=== PATIENT | male | born 1985 | race Caucasian/White ===

== ENCOUNTER 2018-01-29 20:35 | Emergency (ER) | payer OTHER, SELFPAY ==
[2018-01-29 20:37] VITALS: BP 132/74; PULSE 97; RESP 20; TEMP 36.8; O2SAT 100; BMI 39.1
--- NOTE | 2018-01-29 21:16 | ED.DCSUM_ITS ---
- ER Visit Summary Date of Service: 01/29/18 Chief Complaint: Back pain History of Present Illness: The patient is a 32 M presenting with back pain. Patient states he bent over to pick something up while doing yard work and had sudden low back pain. Pain does not radiate. He has no bowel or bladder incontinence. No numbness or weakness. He did not take any medication prior to arrival. History of previous back surgery. Denies fever or other complaints. Physical Examination: Vitals are stable. Patient is afebrile. Alert no acute distress. HEENT exam is unremarkable. Neck is supple. Lungs are clear and equal bilaterally. Heart is regular rate and rhythm. Abdomen is soft nontender nondistended. Back: right paraspinal lumbar tenderness, straight leg raise negative bilaterally Extremities are unremarkable. Skin is warm and dry. No focal neurologic deficit. Normal strength and sensation Remainder of exam is unremarkable. Emergency Department Course and Treatment: Patient is given Dilaudid IM with some improvement. He initially refused zofran. He continues to have pain. He is given Valium and Toradol. He continues to have pain. IV was placed and he was given an additional dose of dilaudid. Patient states his pain is improved and he is now able to stand at bedside. He declines admission. He began to feel nauseated and vomited. He was then given Zofran IV and IV fluids. He will be observed in the ED and checked out to oncoming physician. Disposition: Impression: Lumbar strain This note was generated with [employer] dictation software. It may contain incorrect words, spelling, and punctuation that were not noted in review of the chart prior to signing ED Disposition - Plan for ED Patient: Chief Complaint: Back Instructions: ED Sprain Strain Lumbar Referrals: Bright Gates [Primary Care Provider] -
[2018-01-29] MEDS: HYDROmorphone 1 MG/ML Syringe 2 MG IM (21:23)
[2018-01-29] MEDS: Ketorolac 60 MG/2 ML Vial IM (23:04)
[2018-01-29] MEDS: diazePAM 5 MG Tablet PO (23:04)
[2018-01-30 00:01] VITALS: BP 110/64; PULSE 84; RESP 18; O2SAT 96
[2018-01-30] MEDS: HYDROmorphone 1 MG/ML Syringe IV (00:05)
[2018-01-30 00:21] LABS: Absolute Lymphocyte Count 1.75 X10^3/ul (0.83-4.51); Absolute Neutrophil Count 6.4 X10^3/uL (2.0-7.7); Basophil# 0.02 X10^3/uL; Basophil% 0.2 % (0-1); Eosinophil# 0.08 X10^3/uL; Eosinophils% 0.9 % (0-5); Hematocrit 40.9 % (40-54); Hemoglobin 13.8 g/dl (13.0-16.5); Lymphocyte # 1.75 X10^3/ul (4.0); Lymphocyte % 19.9 % (19-41); Mean Corp Hgb Conc 33.7 g/gl (32-36); Mean Corpuscular Hgb 28.4 pg (27.0-32.0); Mean Corpuscular Volume 84.2 fL (80-94); Mean Platelet Vol. 9.2 fl (6.2-12.0); Monocyte# 0.53 X10^3/uL; Neutrophil # 6.39 X10^3/uL (2.7-7.7); Neutrophil % 72.9 % (47-70); Platelet Count 264 K/mm3 (150-450); RBC Distribution Width CV 13.5 % (11.6-14.6); RBC Distribution Width SD 40.8 fl (35.1-43.9); Red Blood Count 4.86 M/mm3 (4.6-6.2); White Blood Count 8.8 K/mm3 (4.4-11.0)
[2018-01-30 00:22] LABS: POSITIVE COUNT NO; POSITIVE DIFFERENTIAL NO; POSITIVE MORPHOLOGY NO
[2018-01-30 00:42] LABS: Anion Gap 8 (5-15); BUN 16 mg/dL (7-18); BUN/Creat Ratio 15.1 RATIO (10-20); Calcium,Total 8.5 mg/dL (8.5-10.1); Chloride 109 mmol/L (98-107); Creatinine, Serum 1.06 mg/dL (0.70-1.30); EST Glomerular Filtration Rate 87 mL/min (>60); Est Glom Filt Rate - Afr Amer 105 mL/min (>60); Estimated Creatinine Clearance 111.84 ml/min; Glucose 129 mg/dL (74-106); Potassium 4.2 mmol/L (3.5-5.1); Sodium Level 143 mmol/L (136-145)
[2018-01-30] MEDS: Ondansetron 4 MG/2 ML Vial IV (01:06)
--- NOTE | 2018-01-30 01:16 | ED.DEP ---
ED Disposition - Plan for ED Patient: Chief Complaint: Back Instructions: ED Sprain Strain Lumbar Referrals: Bright Gates [Primary Care Provider] -
--- NOTE | 2018-01-30 01:33 | ED.DEP ---
ED Disposition - Plan for ED Patient: Chief Complaint: Back Instructions: ED Sprain Strain Lumbar Prescriptions: Oxycodone HCl/Acetaminophen [Percocet 5/325] 1 - 2 tablet PO Q6H PRN PRN 2 Days #12 tablet PRN Reason: Pain Referrals: Bright Gates [Primary Care Provider] -
[2018-01-30 03:21] VITALS: BP 118/71; PULSE 80; RESP 14; O2SAT 97
[2018-01-30] MEDS: oxyCODONE 5 MG Tablet PO (03:25)
== END 2018-01-30 03:33 | disposition home or self-care (01) ==
PROVIDERS: Emergency Provider Emergency Medicine; Family Provider Family Medicine; PCP Family Medicine
DX: S39.012A Strain of muscle, fascia and tendon of lower back, initial encounter (principal); X50.1XXA Overexertion from prolonged static or awkward postures, initial encounter; Y93.9 Activity, unspecified; Y92.9 Unspecified place or not applicable
CPT/HCPCS: 80048; 85025; 96372; 96374; 96375; 99284; J7030; A4216; J2405

== ENCOUNTER 2019-10-26 18:30 | Emergency (ER) | payer BC, SELFPAY ==
[2019-10-26 18:31] VITALS: BP 135/89; PULSE 91; RESP 20; TEMP 35.9; O2SAT 100; BMI 39.5
[2019-10-26 18:57] LABS: Absolute Lymphocyte Count 1.51 X10^3/uL (0.83-4.51); Absolute Neutrophil Count 3.2 X10^3/uL (2.0-7.7); Basophil# 0.03 X10^3/uL; Basophil% 0.6 % (0-1); Eosinophils% 1.9 % (0-5); Hematocrit 47.3 % (40-54); Hemoglobin 15.3 g/dL (13.0-16.5); Lymphocyte # 1.51 X10^3/ul (4.0); Lymphocyte % 28.1 % (19-41); Mean Corp Hgb Conc 32.3 g/dL (32-36); Mean Corpuscular Hgb 26.6 pg (27.0-32.0); Mean Corpuscular Volume 82.1 fL (80-94); Monocyte# 0.52 X10^3/uL; Monocyte% 9.7 % (0-10); NRBC Flagged by Analyzer 0 % (0-5); Neutrophil # 3.21 X10^3/uL (2.7-7.7); Neutrophil % 59.5 % (47-70); Platelet Count 242 K/mm3 (150-450); RBC Distribution Width CV 13.2 % (11.6-14.6); RBC Distribution Width SD 39.2 fl (35.1-43.9); Red Blood Count 5.76 M/mm3 (4.6-6.2); White Blood Count 5.4 K/mm3 (4.4-11.0)
[2019-10-26 19:09] LABS: Anion Gap 6 (5-15); BUN 16 mg/dL (7-18); BUN/Creat Ratio 13.8 RATIO (10-20); Calcium,Total 9.2 mg/dL (8.5-10.1); Chloride 108 mmol/L (98-107); Creatinine, Serum 1.16 mg/dL (0.70-1.30); EST Glomerular Filtration Rate 77 mL/min (>60); Est Glom Filt Rate - Afr Amer 94 mL/min (>60); Estimated Creatinine Clearance 103.32 ml/min; Glucose 95 mg/dL (74-106); Potassium 3.6 mmol/L (3.5-5.1); Sodium Level 138 mmol/L (136-145)
[2019-10-26] MEDS: 0.9% Normal Saline 1,000 ML 1000 ML IV (19:31)
[2019-10-26] MEDS: Loperamide 2 MG Capsule 4 MG PO (19:31)
[2019-10-26] MEDS: Ondansetron 4 MG/2 ML Vial IV (19:31)
--- NOTE | 2019-10-26 19:36 | ED.VIS.GEN ---
History of Present Illness Chief Complaint: Abd Pain Informant: Patient Onset: Month(s) Context: Sudden Onset - Of severe pain with diarrhea today Timing: Intermittent, Waxes and wanes Quality: Burning epigastric pain Location: Epigastric Current Severity: Mild Maximum Severity: Severe Worsened by: When patient had diarrhea Relieved by: Resolved during H&P Associated Symptoms: Thirst, dry mouth and lightheadedness Narrative: Patient is a 34-year-old male with history of IBS on IBS meds who presents with profuse diarrhea for 1.5 hours prior to presentation. He did not note any blood or mucus in the stool. There is no family history of Crohn's or ulcerative colitis. He denies vomiting. He denies fever or chills. Denies weight loss or weight gain. was concerned because he was lightheaded prior to presenting to the emergency department. He denies any HEENT, respiratory or cardiac symptoms. He has no symptoms. Prior similar symptoms: No - Intermittent constipation diarrhea yes pain no Recent Illness/Hospitalization: No - Past Medical History (1) History of IBS Status: Acute Past Medical History - Allergies and Home Meds Allergies/Adverse Reactions: Allergies morphine Allergy (Verified 10/26/19 18:31) Other azithromycin [From Zithromax] Adverse Reaction (Verified 10/26/19 18:31) Hives Primary Care Physician: Bright Gates [Primary Care Provider] - Prior records reviewed: No Surgical History: no surgical history Lives: Spouse/ Significant Other Smoking Status: Never smoker Alcohol: None Drugs: None Review of Systems General: Denies: Chills, Fever, Malaise, Sweats ENT: Denies: Rhinorrhea, Sore throat Cardiovascular: Denies: Chest pain, Palpitations Respiratory: Denies: Dyspnea, Cough, Dyspnea on exertion Gastrointestinal: Reports: Abdominal pain, Nausea, Diarrhea. Denies: Vomiting, Constipation, Melena, Hematochezia Musculoskeletal: Denies: Myalgias, Arthralgias, Neck pain, Back pain, Swelling, Extremity Pain, -, - Skin: Denies: Rash, Wounds Neurological: Denies: Headache, Weakness, Numbness Hematologic: Denies: Easy bruising, Easy bleeding Physical Exam Vital Signs/Narrative: Vital Signs Temp Pulse Resp BP Pulse Ox 10/26/19 18:31 96.6 F L 91 20 H 135/89 H 100 Inital Vital Signs reviewed: Yes General: Well nourished, Well developed, No Acute Distress Head: Normocephalic, Atraumatic Eyes: Perrl, EOMI ENT: No rhinorrhea, Dry mucous membranes Neck: Supple, Nontender, No lymphadenopathy, No JVD Cardiovascular: Regular rate, Regular rhythm, No murmurs, Normal S1, Normal S2 Respiratory: No distress, CTA bilaterally, Chest nontender Abdomen: Soft, Nontender, Nondistended, Normal bowel sounds, No masses Rectal: Deferred Back: Nontender, Normal Inspection Extremities: Nontender, No edema Skin: Normal color, No rash Neurological: Alert, Oriented x3, Cranial nerves II-XII grossly intact, Normal Strength, Normal Sensation Psychological: Normal affect, Normal Mood Diagnostic/Tx/Re-eval Laboratory Results 10/26/19 10/26/19 10/26/19 18:50 18:50 23:14 WBC 5.4 RBC 5.76 Hgb 15.3 Hct 47.3 MCV 82.1 MCH 26.6 L MCHC 32.3 RDW Std Deviation 39.2 RDW Coeff of Verna 13.2 Plt Count 242 MPV 9.0 Immature Gran % (Auto) 0.200 Neut % (Auto) 59.5 Lymph % (Auto) 28.1 Fisher % (Auto) 9.7 Eos % (Auto) 1.9 Baso % (Auto) 0.6 Absolute Neuts (auto) 3.2 Absolute Lymphs (auto) 1.51 Nucleated RBC % 0 Sodium 138 Potassium 3.6 Chloride 108 H Carbon Dioxide 24.0 Anion Gap 6 BUN 16 Creatinine 1.16 Estim Creat Clear Calc 103.32 Est GFR (MDRD) Af Amer 94 Est GFR (MDRD) Non-Af 77 BUN/Creatinine Ratio 13.8 Glucose 95 Calcium 9.2 Urine Color Yellow Urine Clarity Clear Urine pH 5.0 Ur Specific [place] 1.025 Urine Protein 15 H Urine Glucose (UA) Normal Urine Ketones 50 H Urine Occult Blood Negative Urine Nitrite Negative Urine Bilirubin Negative Urine Urobilinogen 1 H Ur Leukocyte Esterase Negative Urine RBC 0 SEEN Urine WBC 0 SEEN Ur Squamous Epith Cells 0 SEEN Urine Bacteria 0 SEEN Urine Mucus 1+ Laboratory studies are consistent with dehydration with ketosis. Patient has urinated. Patient has passed p.o. challenge. Patient feels and looks much better when he was reexamined at [facility]. - Medical Decision Making Basic metabolic panel was obtained to assess CO2/anion gap electrolytes and renal function. He received 1 L of normal saline. He was treated with Zofran and Imodium. He did take Bentyl prior to presentation. Differential diagnosis exacerbation of her bowel syndrome, viral gastroenteritis, atypical presentation for Crohn's disease/inflammatory bowel disorder ED Disposition - Plan for ED Patient: Disposition: Home or Assisted Living Diagnosis: Diarrhea, Moderate dehydration, Ketosis, Abdominal pain, bilateral lower quadrant Instructions: DIET, Vomiting or Diarrhea [6yr-Adult] Referrals: Bright Gates [Primary Care Provider] - 3-5 Days if not improving
--- NOTE | 2019-10-26 20:18 | ED.RN ---
pt unable to urinate but had more diarrhea. requesting pain med. will notify
[2019-10-26] MEDS: Ketorolac 15 MG/ML Vial IV (20:25)
[2019-10-26] MEDS: 0.9% Normal Saline 1,000 ML 999 ML IV (21:55)
[2019-10-26 22:18] VITALS: BP 105/60; PULSE 72; RESP 14; O2SAT 97
[2019-10-26 23:21] LABS: Bacteria 0 SEEN /hpf (None Seen); Red Blood Cells-Urine 0 SEEN /hpf (0-5); Squamous Epithelial Cells - UA 0 SEEN /hpf (0-5); White Blood Cells 0 SEEN /hpf (0-5)
[2019-10-26 23:33] LABS: Color, Urine Yellow (Yellow); Glucose, Dipstick Normal (Normal); Ketone-Dipstick 50 mg/dl (Negative); Leukocyte Esterase-Dipstick Negative /ul (Negative); Nitrite-Dipstick Negative (Negative); Occult Blood-Urine Negative /ul (Negative); Protein-Dipstick 15 mg/dl (Negative); Specific Gravity, Urine 1.025 (1.002-1.030); Urine Bilirubin Dipstick Negative (Negative); Urine Clarity Clear (Clear); Urine Urobilinogen 1 mg/dl (Normal)
[2019-10-26 23:38] LABS: Mucous, Urine 1+ /hpf (<or=2+)
== END 2019-10-27 00:11 | disposition home or self-care (01) ==
PROVIDERS: Emergency Provider Emergency Medicine; Family Provider Family Medicine; PCP Family Medicine
DX: R19.7 Diarrhea, unspecified (principal); E86.0 Dehydration; E88.89 Other specified metabolic disorders; R10.31 Right lower quadrant pain; R10.32 Left lower quadrant pain; K58.9 Irritable bowel syndrome, unspecified; Z79.899 Other long term (current) drug therapy
CPT/HCPCS: 80048; 81001; 85025; 96361; 96374; 96375; 99283; J7030; J2405

== ENCOUNTER 2022-02-05 10:48 | Outpatient (CLI) | payer BC, SELFPAY ==
[2022-02-05 12:19] LABS: Absolute Lymphocyte Count 2.26 X10^3/uL (0.83-4.51); Absolute Neutrophil Count 2.9 X10^3/uL (2.0-7.7); Basophil# 0.07 X10^3/uL; Basophil% 1.2 % (0-1); Eosinophil# 0.16 X10^3/uL; Eosinophils% 2.7 % (0-5); Hematocrit 45.5 % (40-54); Hemoglobin 15.2 g/dL (13.0-16.5); Lymphocyte # 2.26 X10^3/ul (0.83-4.51); Lymphocyte % 38.8 % (19-41); Mean Corp Hgb Conc 33.4 g/dL (32-36); Mean Corpuscular Hgb 28.7 pg (27.0-32.0); Mean Platelet Vol. 9.2 fl (6.2-12.0); Monocyte# 0.43 X10^3/uL; Monocyte% 7.4 % (0-10); NRBC Flagged by Analyzer 0.3 % (0-5); Neutrophil # 2.88 X10^3/uL (2.7-7.7); Neutrophil % 49.6 % (47-70); Platelet Count 289 K/mm3 (150-450); RBC Distribution Width CV 13.2 % (11.6-14.6); RBC Distribution Width SD 40.6 fl (35.1-43.9); Red Blood Count 5.29 M/mm3 (4.6-6.2); White Blood Count 5.8 K/mm3 (4.4-11.0)
[2022-02-05 12:20] LABS: Vitamin D,25 Hydroxy 23.3 ng/mL
[2022-02-05 12:26] LABS: AST(SGOT) 19 U/L (15-37); Alanine Aminotransfer ALT/SGPT 48 U/L (16-61); Albumin, Serum 3.8 g/dL (3.2-5.0); Alkaline Phosphatase 83 U/L (45-117); Anion Gap 5 (5-15); BUN 11 mg/dL (7-18); BUN/Creat Ratio 10.7 RATIO (10-20); Calcium,Total 9.6 mg/dL (8.5-10.1); Chloride 106 mmol/L (98-107); Cholesterol 177 mg/dL (200); Creatinine, Serum 1.03 mg/dL (0.70-1.30); EST Glomerular Filtration Rate 88 mL/min (>60); Est Glom Filt Rate - Afr Amer 106 mL/min (>60); Free T3 3.3 pg/mL (2.18-3.98); Globulin 3.8 g/dL (2.2-4.2); Glucose 94 mg/dL (74-106); High Density Lipoprotein 42 mg/dL; Potassium 4.4 mmol/L (3.5-5.1); Protein, Total 7.6 g/dL (6.4-8.2); Sodium Level 138 mmol/L (136-145); T4 Free Direct 0.98 ng/dL (0.76-1.46); Thyroid Stim Hormone (TSH) 0.88 uIU/mL (0.358-3.74); Triglycerides 92 mg/dL; Very Low Density Lipoprotein 18 mg/dL (5-40)
== END 2022-02-05 23:59 | disposition home or self-care (01) ==
LOC: BIMLAB 10:49
PROVIDERS: PCP Internal Medicine; Referring Provider Internal Medicine; Visit Provider Internal Medicine
DX: E55.9 Vitamin D deficiency, unspecified (principal); Z87.19 Personal history of other diseases of the digestive system; Z13.220 Encounter for screening for lipoid disorders; Z13.1 Encounter for screening for diabetes mellitus
CPT/HCPCS: 36415; 80053; 80061; 82306; 83036; 84439; 84443; 84481; 85025

== ENCOUNTER 2023-02-12 11:03 | Observation (INO) | payer BC, SELFPAY ==
[2023-02-12 11:04] VITALS: BP 130/77; PULSE 82; RESP 18; TEMP 36.2; O2SAT 97; BMI 40.1
--- NOTE | 2023-02-12 11:27 | EX.ED.DYSGE1 ---
HPI History of Present Illness Chief Complaint: Cellulitis Informant: patient Onset/Context/Timing Onset: Days (5) Context: Gradual Onset Timing: Continuous Quality: Dull Location: Anterior right lower leg Worsened by: Weightbearing and ambulation Relieved by: Nothing Narrative Narrative: Patient presents with redness and swelling to the anterior aspect of his right lower leg that has been constant for the last 5 days. Patient states he was recently diagnosed with cellulitis and was started on Bactrim and Keflex. Patient states he has been unable to tolerate the Bactrim and stopped taking it a couple days ago. Patient has been continuing on the Keflex. Patient admits to subjective fevers and chills. Patient states the redness is getting worse. Patient denies any paresthesias or weakness. Patient is unsure of any trauma. Patient thinks he may have been bitten by an insect. [facility] Medical History Seasonal allergies Sleep apnea Home Medications loratadine 10 mg tablet (Claritin) 10 mg PO DAILY PRN 02/12/23 [History Last Taken Unknown] Allergy/AdvReac Type Severity Reaction Status Date / Time morphine Allergy Other Verified 02/12/23 11:04 azithromycin [From Zithromax] AdvReac Hives Verified 02/12/23 11:04 Sulfa (Sulfonamide AdvReac Nausea Verified 02/12/23 11:04 Antibiotics) [sulfa drugs] Family History (Updated 02/05/22 @ 09:26 by Juana Álvarez) Father Blood clot in vein Brother Diabetes Grandfather Heart disease Skin cancer Surgical History History of back surgery Social History Smoking Status: Never smoker alcohol intake: never substance use type: does not use what type of physical activity do you participate in: walking frequency: daily ROS ROS ED Constitutional Constitutional ED: Reports chills, fever(s) and subjective Eyes Eyes: Denies blurry vision or change in vision ENT ENT ED: Denies rhinorrhea or sore throat Cardiovascular Cardiovascular: Denies chest pain or palpitations Respiratory/Chest Respiratory/Chest: Denies cough or dyspnea Gastrointestinal Gastrointestinal: Denies nausea or vomiting Genitourinary Genitourinary ED: Denies dysuria or hematuria Musculoskeletal Musculoskeletal: Denies back pain or neck pain Integumentary Denies abscess or rash Neurologic Neurologic: Denies headache(s) or weakness Allergic/Immunologic Allergic/Immunologic ED: Denies mouth swelling or urticaria EXAM Physical Exam Const Vital Signs: 02/12/23 11:04 Temperature 97.1 F L Temperature Source Temporal Pulse Rate 82 Respiratory Rate 18 Blood Pressure 130/77 H Blood Pressure Mean 94 Pulse Ox 97 Oxygen Delivery Method Room Air Positive well nourished, well developed and obese General Appearance ED: well developed and NAD Nutritional Appearance: obese HEENT Reports moist mucous membranes Neck supple and no JVD Resp normal respiratory effort and clear to auscultation bilaterally Cardio regular rate and regular rhythm GI normal to inspection, nondistended, normoactive bowel sounds and non-tender Palpation: soft Extremity Extremity Narrative: There is mild tenderness, erythema, and warmth over the anterior aspect of the right lower leg. There is no fluctuance or evidence of any abscess. There is some mild induration. Pedal pulses are equal bilaterally. Sensation was intact to light touch in all digits. Capillary refill was less than 2 seconds in all digits. There is full range of motion of the right lower leg. General Extremety ED: Yes edema and tenderness General Extremity: edema Neuro oriented x3, CN's II-XII intact bilaterally and no sensory deficits noted Motor Exam: strength 5/5 throughout Psych mental status grossly normal MDM MDM MDM Narrative Medical decision making narrative: Differential diagnosis includes cellulitis, sepsis, developing abscess, and partially treated infection. CBC will be obtained to assess for leukocytosis and anemia. Basic metabolic profile will be obtained to assess for electrolyte abnormality and renal function. Lactate will be obtained to assess for sepsis. Blood cultures will be obtained to assess for sepsis. Patient had a recent ultrasound of his right lower leg. I do not feel there is any reason for any imaging at this time. Lab Data Attestation: I reviewed the patient's lab results. Lab results narrative: CBC was reviewed and was within normal limits. Basic metabolic profile was reviewed and was within normal limits. Lactate was reviewed and was normal. Labs: Laboratory Results - last 24 hr 02/12/23 02/12/23 02/12/23 12:00 12:00 12:00 WBC 6.0 RBC 4.45 L Hgb 13.0 Hct 37.6 L MCV 84.5 MCH 29.2 MCHC 34.6 RDW Std Deviation 41.9 RDW Coeff of Verna 13.5 Plt Count 283 MPV 8.8 Immature Gran % (Auto) 0.700 Neut % (Auto) 55.7 Lymph % (Auto) 28.2 [place] % (Auto) 9.2 Eos % (Auto) 4.7 Baso % (Auto) 1.5 H Absolute Neuts (auto) 3.3 Absolute Lymphs (auto) 1.69 Nucleated RBC % 0 Sodium 136 Potassium 3.7 Chloride 107 Carbon Dioxide 26.0 Anion Gap 3 L BUN 11 Creatinine 1.10 Estim Creat Clear Calc 105.93 Est GFR (MDRD) Af Amer 98 Est GFR (MDRD) Non-Af 81 BUN/Creatinine Ratio 10.0 Glucose 106 Lactic Acid 1.5 Calcium 9.0 Management Discussion w/another healthcare provider: Hospitalist Treatment and Re-Evaluation :: Patient was given a dose of Unasyn here. Patient is feeling better on reevaluation. Case was discussed with hospitalist. She will admit the patient for observation. She also requested adding vancomycin. This was ordered. Patient understands and is agreeable with the plan. All questions were answered. Discharge Plan Triage Chief Complaint: Cellulitis ED Provider: Gustavo Mcnulty Dx/Rx/DC Orders Clinical Impression: Cellulitis of right leg, Failure of outpatient treatment Prescriptions: No Action loratadine [Claritin] 10 mg tablet 10 mg PO DAILY PRN Primary Care Provider: Mariann Tovar Referrals: Mariann Tovar MD [Primary Care Provider] - Disposition Disposition: Acute Care Hospital [facility]
[2023-02-12 12:08] LABS: Absolute Lymphocyte Count 1.69 X10^3/uL (0.83-4.51); Absolute Neutrophil Count 3.3 X10^3/uL (2.0-7.7); Basophil# 0.09 X10^3/uL; Basophil% 1.5 % (0-1); Eosinophil# 0.28 X10^3/uL; Eosinophils% 4.7 % (0-5); Hematocrit 37.6 % (40-54); Lymphocyte # 1.69 X10^3/ul (0.83-4.51); Lymphocyte % 28.2 % (19-41); Mean Corp Hgb Conc 34.6 g/dL (32-36); Mean Corpuscular Hgb 29.2 pg (27.0-32.0); Mean Corpuscular Volume 84.5 fL (80-94); Mean Platelet Vol. 8.8 fl (6.2-12.0); Monocyte# 0.55 X10^3/uL; Monocyte% 9.2 % (0-10); NRBC Flagged by Analyzer 0 % (0-5); Neutrophil # 3.34 X10^3/uL (2.7-7.7); Neutrophil % 55.7 % (47-70); Platelet Count 283 K/mm3 (150-450); RBC Distribution Width CV 13.5 % (11.6-14.6); RBC Distribution Width SD 41.9 fl (35.1-43.9); Red Blood Count 4.45 M/mm3 (4.6-6.2)
[2023-02-12 12:20] LABS: Anion Gap 3 (5-15); BUN 11 mg/dL (7-18); Chloride 107 mmol/L (98-107); EST Glomerular Filtration Rate 81 mL/min (>60); Est Glom Filt Rate - Afr Amer 98 mL/min (>60); Estimated Creatinine Clearance 105.93 ml/min; Glucose 106 mg/dL (74-106); Potassium 3.7 mmol/L (3.5-5.1); Sodium Level 136 mmol/L (136-145)
[2023-02-12 12:27] LABS: Lactic Acid 1.5 mmol/L (0.4-1.9)
--- NOTE | 2023-02-12 13:40 | PCM.HP.STD ---
HPI - General General Date of Admission: 02/12/23 Date of Service: 02/12/23 Chief Complaint: R LE Cellulitis HPI Narrative KEENAN ARELLANO, is a 37 M who presented to the emergency department at [facility] on 02/12/2023 with a chief complaint of right lower extremity erythema and swelling. He was seen in an outside ER last Emmanuel concerning right lower extremity swelling and a small wound on his anterior right lomax. 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 He had an area in the center of the erythema with a small wound. His emergency department visit at that time included a lower extremity ultrasound and imaging. Ultrasound was negative for DVT. Imaging showed an area of edema but no other abnormalities. He was started on Keflex and Bactrim. He is only to tolerate a few doses of the Bactrim because it caused stomach upset and possibly a rash on his hand so he stopped taking that and has only been maintained on the Keflex. He reported that the swelling had been worsening and the area of erythema and discomfort had enlarged. He has had no fever but does report some chills and general malaise. Denies any other associated symptoms. Vital signs on presentation showed a temperature of 97.1, blood pressure 130/77, heart rate 82, respiratory 18, and oxygen saturation was 97% on room air. CBC was unremarkable with no leukocytosis or left shift. Chemistry panel was unremarkable. Lactic acid was 1.5. In the emergency department he was placed on Unasyn and I requested a dose of vancomycin be given. He will be admitted as observation to the medical floor. [facility] Medical History (Updated 02/12/23 @ 14:[address] Citlali Epstein DO) Morbid obesity Seasonal allergies Sleep apnea Home Medications loratadine 10 mg tablet (Claritin) 10 mg PO DAILY PRN 02/12/23 [History Last Taken Unknown] Allergy/AdvReac Type Severity Reaction Status Date / Time morphine Allergy Other Verified 02/12/23 11:04 azithromycin [From Zithromax] AdvReac Hives Verified 02/12/23 11:04 Sulfa (Sulfonamide AdvReac Nausea Verified 02/12/23 11:04 Antibiotics) [sulfa drugs] Family History Father Blood clot in vein Brother Diabetes Grandfather Heart disease Skin cancer Surgical History History of back surgery Social History Smoking Status: Never smoker alcohol intake: never substance use type: does not use what type of physical activity do you participate in: walking frequency: daily ROS Constitutional Constitutional: Reports chills and malaise; Denies anorexia, change in weight, fatigue, fever(s), night sweats, weakness or other Eyes Eyes: Denies blurry vision, change in eye color, change in vision, discharge from eye(s), double vision, erythema, eye pain, loss of vision or other ENT HEENT: Denies abnormal hearing, dysphagia, ear pain, epistaxis, headache(s), hearing loss, nasal congestion, nasal discharge, post nasal drip, sinus pressure, sore throat or other Cardiovascular Cardiovascular: Denies chest pain, claudication, dyspnea on exertion, edema, lightheadedness, orthopnea, palpitations, paroxysmal nocturnal dyspnea, rapid heart rate, syncope or other Respiratory/Chest Respiratory/Chest: Denies cough, dyspnea, excessive phlegm production, hemoptysis, productive cough, shortness of breath at rest, shortness of breath with exertion, wheezing or other Gastrointestinal Gastrointestinal: Denies abdominal pain, coffee ground emesis, constipation, diarrhea, dyspepsia, hematemesis, hematochezia, loose stools, melena, nausea, vomiting or other Genitourinary Genitourinary: Denies burning urination, difficulty urinating, dysuria, hematuria, nocturia, urinary frequency, urinary hesitancy, urinary incontinence, urinary urgency or other Musculoskeletal Musculoskeletal: Reports other Details: Right lower extremity pain Integumentary Integumentary: Reports lesions and rash; Denies dry skin, jaundice, new lesions, pruritus, wounds or other Neurologic Neurologic: Denies abnormal gait, abnormal speech, confusion, disequilibrium, dizziness, focal weakness, headache(s), numbness, paresthesias, seizure-like activity, seizures, syncope, tingling, tremor(s) or other Psychiatric Psychiatric: Denies anxiety, depression, homicidal ideation, suicidal ideation or other Endocrine Endocrinology: Denies change in body appearance, cold intolerance, excessive sweating, heat intolerance, polydipsia, polyuria or other Hematologic/Lymphatic Hematologic/Lymphatic: Denies anemia, easy bleeding, easy bruising, lymphadenopathy or other Allergic/Immunologic Allergic/Immunologic: Denies rhinitis, hives, eczemia, asthma or other Vital Signs Vital Signs Vital Signs: 02/12/23 11:04 Temperature 97.1 F L Temperature Source Temporal Pulse Rate 82 Respiratory Rate 18 Blood Pressure 130/77 H Blood Pressure Mean 94 Pulse Ox 97 Oxygen Delivery Method Room Air Weight Weight: 137.801 kg Body Mass Index (BMI) 40.1 Physical Exam Const alert, oriented x3, no apparent distress, healthy appearing and well nourished Constitutional Narrative: Morbidly obese, middle-aged, white male, sitting up in bed on his computer, appears comfortable nontoxic General Appearance: cooperative HEENT normocephalic, head/scalp atraumatic, hearing grossly normal bilaterally and moist oral mucous membranes HEENT Narrative: Mallampati 3, no thrush Resp normal respiratory effort, no retractions, no use of accessory muscles and clear to auscultation bilaterally Auscultation: Negative for rales, rhonchi or wheezes Cardio regular rate, regular rhythm, S1 normal heart sound, S2 normal heart sound, no murmurs, no rub and no gallops GI normal to inspection, nondistended, normoactive bowel sounds, soft to palpation and non-tender Extremity no clubbing, cyanosis or edema Skin Skin Narrative: Right lower extremity with area of erythema just below the tibial tuberosity to approximately 1 to 2 inches above the right ankle, small healing wound on the anterior mid tibial region which I suspect is the nidus for infection, the erythema is not quite circumferential and was outlined by a purple pen Neuro oriented x3, moves all extremities and no focal motor deficits Sensorium / Orientation: awake, alert, oriented to person, oriented to place and oriented to time Speech: speech normal Psych affect normal Psych Narrative: Very pleasant Results Lab / Micro Data Attestation: I reviewed the patient's lab results. Result Diagrams: 02/12/23 12:00 02/12/23 12:00 Labs: Laboratory Results - last 24 hr 02/12/23 12:00: WBC 6.0, RBC 4.45 L, Hgb 13.0, Hct 37.6 L, MCV 84.5, MCH 29.2, MCHC 34.6, RDW Std Deviation 41.9, RDW Coeff of Verna 13.5, Plt Count 283, MPV 8.8, Immature Gran % (Auto) 0.700, Neut % (Auto) 55.7, Lymph % (Auto) 28.2, [place] % (Auto) 9.2, Eos % (Auto) 4.7, Baso % (Auto) 1.5 H, Absolute Neuts (auto) 3.3, Absolute Lymphs (auto) 1.69, Nucleated RBC % 0 02/12/23 12:00: Sodium 136, Potassium 3.7, Chloride 107, Carbon Dioxide 26.0, Anion Gap 3 L, BUN 11, Creatinine 1.10, Estim Creat Clear Calc 105.93, Est GFR (MDRD) Af Amer 98, Est GFR (MDRD) Non-Af 81, BUN/Creatinine Ratio 10.0, Glucose 106, Calcium 9.0 02/12/23 12:00: Lactic Acid 1.5 Assessment & Plan Assessment/Plan (1) Failure of outpatient treatment: (2) Cellulitis of right leg: PLAN: Plan Cellulitis R LE -Failure of outpt treatment -Had been on Keflex and Bactrim however did not tolerate Bactrim and only took for approximately 3-4 doses -Erythematous area has becoming worse and leg has become more painful -Start Unasyn and vancomycin -As needed pain medication with scheduled Tylenol -Patient does not have a leukocytosis ZE -Continue home CPAP Morbid obesity -BMI 40.1 -Recommend weight loss -Complicates treatment, prognosis, outcomes DVT prophylaxis -Lovenox daily CODE STATUS Full code Charges/Coding Visit Charges Inpatient E&M: 71170 Init Hosp L1
[2023-02-12 14:08] VITALS: BP 134/73; PULSE 67; RESP 16; TEMP 36.5; O2SAT 99
--- NOTE | 2023-02-12 14:32 | CPS ---
Pt's having his CPAP brought in later today
[2023-02-12 14:58] VITALS: BMI 40.1
[2023-02-12 15:08] VITALS: BP 127/74; PULSE 71; RESP 17; TEMP 37; O2SAT 100
[2023-02-12] MEDS: 0.9% Saline Lock 10 ML Syringe IV (16:54)
--- NOTE | 2023-02-12 17:53 | MDS.RN ---
PT HAD AN ALLERGIC REACTION TO INITIATION OF VANCO IV- HIVES NOTED TO IV SITE- MED STOPPED AND DR NOTIFIED - PT HAD NO BREATHING ISSUES - JUST FELT WARM
[2023-02-12 21:11] VITALS: BP 115/76; PULSE 80; RESP 18; TEMP 36.9; O2SAT 96
[2023-02-12] MEDS: Linezolid 600 MG 600 MG/300 ML BAG 200 MG IV (21:17)
[2023-02-13 03:00] VITALS: BP 117/76; PULSE 67; RESP 16; TEMP 36.7; O2SAT 97
[2023-02-13] MEDS: 0.9% Saline Lock 10 ML Syringe IV (05:16)
[2023-02-13 06:50] LABS: Absolute Lymphocyte Count 2.14 X10^3/uL (0.83-4.51); Absolute Neutrophil Count 3.8 X10^3/uL (2.0-7.7); Basophil# 0.08 X10^3/uL; Basophil% 1.2 % (0-1); Eosinophils% 4.4 % (0-5); Hematocrit 38.5 % (40-54); Hemoglobin 12.7 g/dL (13.0-16.5); Lymphocyte # 2.14 X10^3/ul (0.83-4.51); Lymphocyte % 31.1 % (19-41); Mean Corpuscular Hgb 28.8 pg (27.0-32.0); Mean Corpuscular Volume 87.3 fL (80-94); Mean Platelet Vol. 8.8 fl (6.2-12.0); Monocyte# 0.52 X10^3/uL; Monocyte% 7.6 % (0-10); NRBC Flagged by Analyzer 0 % (0-5); Neutrophil # 3.78 X10^3/uL (2.7-7.7); Platelet Count 291 K/mm3 (150-450); RBC Distribution Width CV 13.7 % (11.6-14.6); RBC Distribution Width SD 43.5 fl (35.1-43.9); Red Blood Count 4.41 M/mm3 (4.6-6.2); White Blood Count 6.9 K/mm3 (4.4-11.0)
[2023-02-13 07:28] LABS: Anion Gap 2 (5-15); BUN 11 mg/dL (7-18); BUN/Creat Ratio 10.2 RATIO (10-20); Chloride 107 mmol/L (98-107); Creatinine, Serum 1.08 mg/dL (0.70-1.30); EST Glomerular Filtration Rate 82 mL/min (>60); Est Glom Filt Rate - Afr Amer 100 mL/min (>60); Estimated Creatinine Clearance 107.89 ml/min; Glucose 100 mg/dL (74-106); Potassium 4.3 mmol/L (3.5-5.1); Sodium Level 135 mmol/L (136-145)
--- NOTE | 2023-02-13 09:04 | PCM.PN.HOSP ---
Reason for Visit Reason for Visit: Diagnoses Cellulitis of right lower limb (02/12/23) Other specified health status (02/12/23) Subjective Subjective Erythema was improving however still had an area of swelling that today felt to be slightly fluctuant. Ultrasound ordered to assess for abscess Objective Data Objective Data Vital Signs: Vital Signs Temp Pulse Resp BP Pulse Ox O2 Del Method 98.2 F 74 18 136/79 H 98 Room Air 02/13/23 16:17 02/13/23 16:17 02/13/23 16:17 02/13/23 16:17 02/13/23 16:17 02/13/23 16:17 Oxygen Delivery Method Room Air Weight: 137.801 kg Body Mass Index (BMI) 40.1 Intake & Output: Intake and Output for Last 24 Hours 02/11/23 02/12/23 02/13/23 23:59 23:59 23:59 Intake Total 1149.25 / 1149.25 1291.75 / 1291.75 Balance 1149.25 / 1149.25 1291.75 / 1291.75 Lab / Micro Data Result Diagrams: 02/13/23 06:16 02/13/23 06:16 Labs: Laboratory Results - last 24 hr 02/13/23 06:16: WBC 6.9, RBC 4.41 L, Hgb 12.7 L, Hct 38.5 L, MCV 87.3, MCH 28.8, MCHC 33.0, RDW Std Deviation 43.5, RDW Coeff of Verna 13.7, Plt Count 291, MPV 8.8, Immature Gran % (Auto) 0.700, Neut % (Auto) 55.0, Lymph % (Auto) 31.1, Butler % (Auto) 7.6, Eos % (Auto) 4.4, Baso % (Auto) 1.2 H, Absolute Neuts (auto) 3.8, Absolute Lymphs (auto) 2.14, Nucleated RBC % 0 02/13/23 06:16: Sodium 135 L, Potassium 4.3, Chloride 107, Carbon Dioxide 26.0, Anion Gap 2 L, BUN 11, Creatinine 1.08, Estim Creat Clear Calc 107.89, Est GFR (MDRD) Af Amer 100, Est GFR (MDRD) Non-Af 82, BUN/Creatinine Ratio 10.2, Glucose 100, Calcium 9.0 Radiography Diagnostic Testing: Radiology Impression Soft Tissue Ultrasound 02/13/23 10:03 IMPRESSION: There is soft tissue edema. In the area of concern there is 19 x 16 x 8mm fluid collection. Given the history abscess is not excluded. Electronically Signed: Aleks Jennings MD at 16:55 EDT Reading Location ID and State: [facility] / [place] , Service support , Physical Exam Narrative General: Alert, oriented, no apparent distress HEENT: Atraumatic, normocephalic Eyes: Anicteric, normal conjunctiva, extraocular movements grossly intact Neck: Supple Respiratory: Clear to auscultation bilaterally, normal respiratory effort Cardiovascular: Regular rate and rhythm GI: Soft, nontender, nondistended Extremities: No edema Musculoskeletal: Moving all extremities Neuro: No overt focal neurological deficits Skin: Right lomax/lower leg erythema appreciated with a localized area of swelling with slight fluctuance without any drainage Psych: Cooperative Assessment & Plan Assessment/Plan (1) Failure of outpatient treatment: (2) Cellulitis of right leg: PLAN: Plan Right lower extremity abscess and cellulitis R LE -Failure of outpt treatment -Had been on Keflex and Bactrim however did not tolerate Bactrim and only took for approximately 3-4 doses -Erythematous area has becoming worse and leg has become more painful -Start Unasyn and vancomycin -As needed pain medication with scheduled Tylenol -Patient does not have a leukocytosis -02/13: Today appreciated an area that seemed more fluctuant though other aspects of erythema receding, obtained ultrasound which showed 1.9 x 1.5 x 0.8 cm fluid collection. Discussed with surgery and they performed a bedside I&D which did reveal pus and cultures were sent. Will keep today on antibiotics and they will evaluate again tomorrow. Possible DC tomorrow ZE -Continue home CPAP Morbid obesity -BMI 40.1 -Recommend weight loss -Complicates treatment, prognosis, outcomes DVT prophylaxis -Lovenox daily CODE STATUS Full code Charges/Coding Visit Charges Inpatient E&M: 30280 Subs Hosp L2
--- NOTE | 2023-02-13 10:03 | US_ITS ---
STUDY: ULTRASOUND - US Lower Extremity, limited, joint or other nonvascular extremity 02/13/2023 4:52 PM REASON FOR EXAM: Male, 37 years old. R lomax cellulitis, concern for abscessR lomax cellulitis, concern for abscess TECHNIQUE: A superficial ultrasound was performed with real-time and static mistry-scale imaging. COMPARISON: None. FINDINGS: There is 19 x 16 x 8mm fluid collection. There is no abscess. There is no visualized mass. There is soft tissue edema. US/Ext Non Vasc Limited/Soft Tiss IMPRESSION: There is soft tissue edema. In the area of concern there is 19 x 16 x 8mm fluid collection. Given the history abscess is not excluded. Electronically Signed: Aleks Jennings MD at 16:55 EDT ,
[2023-02-13 10:57] VITALS: BP 132/82; PULSE 72; RESP 18; TEMP 36.8; O2SAT 100
[2023-02-13] MEDS: Linezolid 600 MG 600 MG/300 ML BAG 200 MG IV ×2 (11:03→21:30)
--- NOTE | 2023-02-13 16:12 | NURSING ---
This RN spoke to Aileen in Pharmacy regarding Unasyn. Pt IV went bad around the time his 1200 Unasyn was due. Pt still had his other antibotic that still needed to finish infusing when IV went bad. This nurse was unsuccessful at re-starting IV twice so Dariusz Christie RN was able to get it. By the time this RN was able to hang Unaysn around 1400, Aileen from pharmacy was called by this RN in regards what this RN should do since there was another scheduled dose to be given tonight at 1800. Aileen ([facility] inpt Pharmacist) recommended 1200 [address]aysn not be given and give the [address] Moore is aware.
[2023-02-13 16:17] VITALS: BP 136/79; PULSE 74; RESP 18; TEMP 36.8; O2SAT 98
--- NOTE | 2023-02-13 17:50 | EX.PCM.CON.S ---
Assessment & Plan Assessment/Plan (1) Cellulitis of right leg: PLAN: This is a 37-year-old male who presents for 6-day history of right lower extremity swelling, redness, and warmth despite outpatient therapy with Bactrim and Keflex. On exam there is clear fluctuance in the central portion of this area concerning for abscess, and indeed, patient has fluid collection showing a depth of approximately 1.5 cm on soft tissue ultrasound. I performed a bedside ultrasound to localize this area and recommended bedside incision and drainage procedure. Patient provided his consent and this was undertaken this evening without complication. Cultures are currently pending. Recommend keeping the extremity elevated and we will plan to reassess the wound tomorrow. Continue IV antibiotics and treatment per hospitalist service HPI Consult Data Date of Consult: 02/13/23 HPI Narrative Reason for Consultation: Right lower extremity cellulitis HPI Narrative: KEENAN ARELLANO, is a 37 M who presented to [facility] ER at the behest of his primary care provider, Dr. Mariann Tovar for right lower extremity cellulitis that appeared refractory to oral antibiotics. He is admitted to the hospitalist service and begun on IV antibiotics. Hospitalist service then obtained a right lower extremity soft tissue ultrasound that showed a approximately 2 cm subcutaneous fluid collection and surgery is asked to evaluate for possible subcutaneous abscess. Patient states that he has dealt with this discomfort and swelling for the past 6 days. 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 He denies any prior soft tissue infections. He denies any awareness of uncontrolled blood sugars. [facility] Medical History (Updated 02/12/23 @ 15:07 by Magui Alcala) Morbid obesity Seasonal allergies Sleep apnea Home Medications loratadine 10 mg tablet (Claritin) 10 mg PO DAILY PRN PRN allergies 02/12/23 [History Last Taken Unknown] Allergy/AdvReac Type Severity Reaction Status Date / Time morphine Allergy Other Verified 02/12/23 11:04 vancomycin Allergy Hives Verified 02/12/23 17:17 azithromycin [From Zithromax] AdvReac Hives Verified 02/12/23 11:04 Sulfa (Sulfonamide AdvReac Nausea Verified 02/12/23 11:04 Antibiotics) [sulfa drugs] Family History Father Blood clot in vein Brother Diabetes Grandfather Heart disease Skin cancer Surgical History History of back surgery Social History Smoking Status: Never smoker alcohol intake: never substance use type: does not use what type of physical activity do you participate in: walking frequency: daily Physical Exam Const alert, oriented x3 and no apparent distress General Appearance: cooperative Extremity Extremity Narrative: There is erythema and swelling of the right lower extremity consistent with cellulitis, but on exam patient does have some underlying fluctuance. Ultrasound was applied to patient's extremity and identified a subcutaneous fluid collection at a depth of approximately 1 to 1.5 cm. Lab / Micro Data Result Diagrams: 02/13/23 06:16 02/13/23 06:16 Labs: Laboratory Results - last 24 hr 02/13/23 06:16: WBC 6.9, RBC 4.41 L, Hgb 12.7 L, Hct 38.5 L, MCV 87.3, MCH 28.8, MCHC 33.0, RDW Std Deviation 43.5, RDW Coeff of Verna 13.7, Plt Count 291, MPV 8.8, Immature Gran % (Auto) 0.700, Neut % (Auto) 55.0, Lymph % (Auto) 31.1, Waller % (Auto) 7.6, Eos % (Auto) 4.4, Baso % (Auto) 1.2 H, Absolute Neuts (auto) 3.8, Absolute Lymphs (auto) 2.14, Nucleated RBC % 0 02/13/23 06:16: Sodium 135 L, Potassium 4.3, Chloride 107, Carbon Dioxide 26.0, Anion Gap 2 L, BUN 11, Creatinine 1.08, Estim Creat Clear Calc 107.89, Est GFR (MDRD) Af Amer 100, Est GFR (MDRD) Non-Af 82, BUN/Creatinine Ratio 10.2, Glucose 100, Calcium 9.0 Radiology Impression Soft Tissue Ultrasound 02/13/23 10:03 IMPRESSION: There is soft tissue edema. In the area of concern there is 19 x 16 x 8mm fluid collection. Given the history abscess is not excluded. Electronically Signed: Aleks Jennings MD at 16:55 EDT , Charges/Coding Visit Charges Inpatient E&M: 21416 Init Hosp L2
--- NOTE | 2023-02-13 17:56 | PRO.PCM_ITS ---
Procedure Report Date of Procedure: 02/13/23 Procedure: Incision and drainage of right lower extremity abscess Procedure description: After obtaining written consent, patient was positioned on his bed. A verbal timeout was conducted to confirm the patient and procedure. Then the area was scrubbed with chlorhexidine and draped with brianna rile towels (the area of concern had been previously delineated with a preprocedure ultrasound marking the boundaries of the area of underlying fluid collection). The area was anesthetized with a local block using 5 mL of 1% lidocaine. Then, a 22-gauge needle was inserted into the area of greatest fluctuance and back aspirated resulting in return of purulent fluid. Using this localization technique, a #15 blade scalpel was used to make a stab incision in this area down to the needle. This resulted in discharge of bloody purulence which was bluntly probed and the soft tissues were milked to try to disrupt any loculated infection. Cultures were obtained for aerobic and anaerobic micro. The cavity was then irrigated with sterile saline. The cavity it was packed tightly with quarter inch pain gauze. A 4 x 4 gauze and abdominal pad were then placed atop this area after hemostasis was confirmed and this ensemble was held in place with a Kerlix gauze which was taped into place itself. Patient tolerated the procedure without any apparent complication. EBL: 5 mL Procedures Integumentary 10xxx: 10282 Drainage of skin abscess
[2023-02-13] MEDS: Lidocaine 1% (20 ml mdv) 20 ML Vial INFILT (18:01)
[2023-02-13] MEDS: oxyCODONE 5 MG Tablet PO (18:03)
[2023-02-13] MEDS: Acetaminophen 500 MG Tablet 1000 MG PO (21:30)
[2023-02-13 21:34] VITALS: BP 120/76; PULSE 68; RESP 16; TEMP 36.6; O2SAT 95
[2023-02-13 22:00] VITALS: BP 120/76; PULSE 68; RESP 16; TEMP 36.6; O2SAT 95
[2023-02-14 03:34] VITALS: BP 115/78; PULSE 63; RESP 16; TEMP 36.4; O2SAT 98
[2023-02-14 05:15] VITALS: BP 115/78; PULSE 63; RESP 16; TEMP 36.4; O2SAT 98
[2023-02-14 06:56] LABS: Absolute Lymphocyte Count 2.21 X10^3/uL (0.83-4.51); Absolute Neutrophil Count 3.6 X10^3/uL (2.0-7.7); Basophil# 0.08 X10^3/uL; Basophil% 1.2 % (0-1); Eosinophil# 0.28 X10^3/uL; Eosinophils% 4.2 % (0-5); Hematocrit 43.5 % (40-54); Hemoglobin 13.7 g/dL (13.0-16.5); Lymphocyte # 2.21 X10^3/ul (0.83-4.51); Mean Corp Hgb Conc 31.5 g/dL (32-36); Mean Corpuscular Volume 88.8 fL (80-94); Mean Platelet Vol. 8.5 fl (6.2-12.0); Monocyte# 0.53 X10^3/uL; Monocyte% 7.9 % (0-10); NRBC Flagged by Analyzer 0 % (0-5); Neutrophil # 3.55 X10^3/uL (2.7-7.7); Neutrophil % 53.1 % (47-70); Platelet Count 329 K/mm3 (150-450); RBC Distribution Width CV 13.5 % (11.6-14.6); RBC Distribution Width SD 44.1 fl (35.1-43.9); White Blood Count 6.7 K/mm3 (4.4-11.0)
[2023-02-14 07:10] LABS: Anion Gap 2 (5-15); BUN 12 mg/dL (7-18); BUN/Creat Ratio 10.7 RATIO (10-20); Calcium,Total 9.3 mg/dL (8.5-10.1); Chloride 108 mmol/L (98-107); Creatinine, Serum 1.12 mg/dL (0.70-1.30); EST Glomerular Filtration Rate 79 mL/min (>60); Est Glom Filt Rate - Afr Amer 96 mL/min (>60); Estimated Creatinine Clearance 104.04 ml/min; Glucose 97 mg/dL (74-106); Potassium 4.3 mmol/L (3.5-5.1); Sodium Level 138 mmol/L (136-145)
[2023-02-14 07:49] VITALS: BP 124/78; PULSE 67; RESP 17; TEMP 36.4; O2SAT 97
--- NOTE | 2023-02-14 08:10 | PCM.PN.SRG ---
Subjective Subjective Patient seen and examined during AM rounds. He denies any acute events overnight. He denies any pain from his right lower extremity. Nursing reports they had to change his dressing a couple of times, but patient states this was only on the account of it falling down as he got up out of bed. Objective Data Objective Data Vital Signs: Vital Signs Temp Pulse Resp BP Pulse Ox O2 Del Method 97.6 F L 67 17 124/78 H 97 Room Air 02/14/23 07:49 02/14/23 07:49 02/14/23 07:49 02/14/23 07:49 02/14/23 07:49 02/14/23 07:49 Oxygen Delivery Method Room Air Weight: 303 lb 12.8 oz Body Mass Index (BMI) 40.1 Intake & Output: Intake and Output for Last 24 Hours 02/12/23 02/13/23 02/14/23 23:59 23:59 23:59 Intake Total 1149.25 / 1149.25 2091.75 / 2091.75 1224 / 1224 Balance 1149.25 / 1149.25 2091.75 / 2091.75 1224 / 1224 Lab / Micro Data Result Diagrams: 02/14/23 06:45 02/14/23 06:45 Labs: Laboratory Results - last 24 hr 02/14/23 06:45: WBC 6.7, RBC 4.90, Hgb 13.7, Hct 43.5, MCV 88.8, MCH 28.0, MCHC 31.5 L, RDW Std Deviation 44.1 H, RDW Coeff of Verna 13.5, Plt Count 329, MPV 8.5, Immature Gran % (Auto) 0.600, Neut % (Auto) 53.1, Lymph % (Auto) 33.0, Costilla % (Auto) 7.9, Eos % (Auto) 4.2, Baso % (Auto) 1.2 H, Absolute Neuts (auto) 3.6, Absolute Lymphs (auto) 2.21, Nucleated RBC % 0 02/14/23 06:45: Sodium 138, Potassium 4.3, Chloride 108 H, Carbon Dioxide 28.0, Anion Gap 2 L, BUN 12, Creatinine 1.12, Estim Creat Clear Calc 104.04, Est GFR (MDRD) Af Amer 96, Est GFR (MDRD) Non-Af 79, BUN/Creatinine Ratio 10.7, Glucose 97, Calcium 9.3 Micro: Microbiology 02/12/23 11:45 Blood Culture (Wb) - Left Forearm Blood Culture - Preliminary No growth in 48 hours. 02/12/23 12:00 Blood Culture (Wb) - Right Hand Blood Culture - Preliminary No growth in 48 hours. Radiography Diagnostic Testing: Radiology Impression Soft Tissue Ultrasound 02/13/23 10:03 IMPRESSION: There is soft tissue edema. In the area of concern there is 19 x 16 x 8mm fluid collection. Given the history abscess is not excluded. Electronically Signed: Aleks Jennings MD at 16:55 EDT , Physical Exam Const oriented x3 and no apparent distress Extremity Extremity Narrative: Dressing is taken down from right lower extremity and area of cellulitis is decreased as is the degree of erythema. There is no longer fluctuance. Patient's packing is removed and the area is hemostatic. Assessment & Plan Assessment/Plan (1) Abscess of leg, right: PLAN: Patient is postprocedure day 1 from ultrasound-guided incision and drainage procedure of right pretibial abscess. This area of concern has not improved appearance today. I remove the packing and discussed wound care with him to include daily showering, but trying to expel any water from the wound cavity. I would also like to have him continue to elevate this extremity. Plan for 7 more days of oral antibiotics, but patient has cleared to discharge from a surgical standpoint. I would like to see him in follow-up in 1 week's time as an outpatient for a wound check.
--- NOTE | 2023-02-14 08:31 | PCM.DC ---
Discharge Instructions Diet Discharge Diet: No restrictions Activity Discharge Activity: Return to Normal Activity Follow Up Care Test Results: Test results from this visit will be discussed in further detail at your follow-up appointment, if applicable. Discharge Plan Admission Admit Date/Time: 02/12/23 13:33 Primary Reason for Your Visit: Right leg redness Attending Provider: Regina Zaldivar Primary Care Provider: Mariann Tovar Consulting Providers: Citlali Epstein Instructions Patient Instructions: ED Abscess Incision And Drainage Additional Instructions / Restrictions: DISCHARGE INSTRUCTIONS PLEASE READ *Please take this with you to your next doctors appointment* -You will need to follow-up with Dr. Paredes with surgery in 1 week. Please call upon discharge to schedule a hospital follow-up appointment -You will be discharged on Augmentin 875 twice daily as well as doxycycline 100 mg twice daily, you will take a dose of each tonight followed by 5 additional days. Scripts for these have been sent to the [facility] pharmacy on file -Continue local wound care as directed by surgery including daily showering and expelling any water from wound cavity. Please elevate extremity. Keep wound clean and dry. -Please call your primary care provider's office upon discharge to schedule a hospital follow up within 1 week. -For any concerning signs or symptoms please call 911 or proceed to the nearest emergency department Discharge Orders/Prescriptions Prescriptions: New doxycycline hyclate 100 mg tablet 100 mg PO BID 5 Days Qty: 11 0RF amoxicillin-pot clavulanate 875-125 mg tablet 1 tab PO BID 5 Days Qty: 11 0RF Continued loratadine [Claritin] 10 mg tablet 10 mg PO DAILY PRN PRN (Reason: allergies) Referrals / Follow Up: Mariann Tovar MD [Primary Care Provider] - Within 1 Week Jules Paredes MD [Med Staff - Active Staff] - Within 1 Week (Please call upon discharge to schedule a hospital follow-up appointment) Disposition Disposition (needs filled in before D/C Order can be placed): Home, Self Care
--- NOTE | 2023-02-14 08:34 | DS.PCM_ITS ---
Providers Date of Admission: 02/12/23 Date of Discharge: 02/14/23 Primary Care Physician: Dr. Mariann Tovar MD Reason For Visit: R LE CELLULITIS Diagnosis Discharge Diagnosis (1) Abscess of leg, right: Status: Acute Code(s): L02.415 - Cutaneous abscess of right lower limb Plan #Right lower extremity abscess and cellulitis R LE #ZE #Morbid obesity Medications at Discharge Home Medications loratadine 10 mg tablet (Claritin) 10 mg PO DAILY PRN PRN allergies 02/12/23 amoxicillin 875 mg-potassium clavulanate 125 mg tablet 1 tab PO BID 5 days #11 tabs 02/14/23 doxycycline hyclate 100 mg tablet 100 mg PO BID 5 days #11 tabs 02/14/23 Hospital Course Procedures - (I&D of R leg abscess 02/13) Summary of Care Provided Minutes Spent on Discharge: Hospital Course: 37y/o male hx obseity, [place], here 02/12 with RLE erythema and swelling. Went to [facility] on Friday for swelling and erythema and was discharged with bactrim and keflex however only tolerated a few doses of bactrim d/t upset stomach and possibly rash. Represented d/t worsening. Hospitalist consulted for RLE cellulitis. Admitted and started on unasyn and vanc. Unfortunately had hives from vancomycin so this was changed to linezolid. He improved however an area over R lomax was still more proportionally red and slightly fluctuant. US revealed 1.9 x 1.5 x 0.8 cm fluid collection. Surgery consulted and I&D at bedside 02/13 w/ pus. Cultures obtained. Pt kept overnight and doing well in AM. Discussed with surgery, D/c'd home on 5 more days of abx w/ 1 week follow up and local wound care at home. D/c instructions as followed: -You will need to follow-up with Dr. Paredes with surgery in 1 week. Please call upon discharge to schedule a hospital follow-up appointment -You will be discharged on Augmentin 875 twice daily as well as doxycycline 100 mg twice daily, you will take a dose of each tonight followed by 5 additional days.? Scripts for these have been sent to the [facility] pharmacy on file -Continue local wound care as directed by surgery including daily showering and expelling any water from wound cavity. Please elevate extremity. Keep wound clean and dry. -Please call your primary care provider's office upon discharge to schedule a hospital follow up within 1 week. -For any concerning signs or symptoms please call 911 or proceed to the nearest emergency department Physical Exam Narrative General: Alert, oriented, no apparent distress HEENT: Atraumatic, normocephalic Eyes: Anicteric, normal conjunctiva, extraocular movements grossly intact Neck: Supple Respiratory: Clear to auscultation bilaterally, normal respiratory effort Cardiovascular: Regular rate and rhythm GI: Soft, nontender, nondistended Extremities: No edema Musculoskeletal: Moving all extremities Neuro: No overt focal neurological deficits Skin: RLE wrapped, no drainage on dressing, erythema surrounding continues to receed Psych: Cooperative Weight / BMI Weight Weight: 137.801 kg Body Mass Index (BMI) 40.1 ABG / Lab / Microbiology Data Result Diagrams: 02/14/23 06:45 02/14/23 06:45 Laboratory: Laboratory Results - last 24 hr 02/14/23 06:45: WBC 6.7, RBC 4.90, Hgb 13.7, Hct 43.5, MCV 88.8, MCH 28.0, MCHC 31.5 L, RDW Std Deviation 44.1 H, RDW Coeff of Verna 13.5, Plt Count 329, MPV 8.5, Immature Gran % (Auto) 0.600, Neut % (Auto) 53.1, Lymph % (Auto) 33.0, Gentry % (Auto) 7.9, Eos % (Auto) 4.2, Baso % (Auto) 1.2 H, Absolute Neuts (auto) 3.6, Absolute Lymphs (auto) 2.21, Nucleated RBC % 0 02/14/23 06:45: Sodium 138, Potassium 4.3, Chloride 108 H, Carbon Dioxide 28.0, Anion Gap 2 L, BUN 12, Creatinine 1.12, Estim Creat Clear Calc 104.04, Est GFR (MDRD) Af Amer 96, Est GFR (MDRD) Non-Af 79, BUN/Creatinine Ratio 10.7, Glucose 97, Calcium 9.3 Microbiology: Microbiology 02/12/23 11:45 Blood Culture (Wb) - Left Forearm Blood Culture - Preliminary No growth in 48 hours. 02/12/23 12:00 Blood Culture (Wb) - Right Hand Blood Culture - Preliminary No growth in 48 hours. Radiography Diagnostic Testing: Radiology Impression Soft Tissue Ultrasound 02/13/23 10:03 IMPRESSION: There is soft tissue edema. In the area of concern there is 19 x 16 x 8mm fluid collection. Given the history abscess is not excluded. Electronically Signed: Aleks Jennings MD at 16:55 EDT Reading Location ID and State: [address] [place] [address] , Service support , D/C Instructions Discharge Diet: No restrictions Meaningful Use Info Meaningful Use Diagnoses (Choose all that apply): None applicable Discharge Plan Admission Admit Date/Time: 02/12/23 13:33 Primary Reason for Your Visit: Right leg redness Attending Provider: Regina Zaldivar Primary Care Provider: Mariann Tovar Consulting Providers: Citlali Epstein Instructions Patient Instructions: ED Abscess Incision And Drainage Additional Instructions / Restrictions: DISCHARGE INSTRUCTIONS PLEASE READ *Please take this with you to your next doctors appointment* -You will need to follow-up with Dr. Paredes with surgery in 1 week. Please call upon discharge to schedule a hospital follow-up appointment -You will be discharged on Augmentin 875 twice daily as well as doxycycline 100 mg twice daily, you will take a dose of each tonight followed by 5 additional days. Scripts for these have been sent to the [facility] pharmacy on file -Continue local wound care as directed by surgery including daily showering and expelling any water from wound cavity. Please elevate extremity. Keep wound clean and dry. -Please call your primary care provider's office upon discharge to schedule a hospital follow up within 1 week. -For any concerning signs or symptoms please call 911 or proceed to the nearest emergency department Discharge Orders/Prescriptions Prescriptions: New doxycycline hyclate 100 mg tablet 100 mg PO BID 5 Days Qty: 11 0RF amoxicillin-pot clavulanate 875-125 mg tablet 1 tab PO BID 5 Days Qty: 11 0RF Continued loratadine [Claritin] 10 mg tablet 10 mg PO DAILY PRN PRN (Reason: allergies) Referrals / Follow Up: Mariann Tovar MD [Primary Care Provider] - Within 1 Week Jules Paredes MD [Med Staff - Active Staff] - Within 1 Week (Please call upon discharge to schedule a hospital follow-up appointment) Disposition Disposition (needs filled in before D/C Order can be placed): Home, Self Care Charges/Coding Visit Charges Inpatient E&M: 66897 Disch Hosp >30min
--- NOTE | 2023-02-14 09:44 | CASEMGMT ---
RN CM NOTE: Discharge order in. RN CM to room to discuss discharge planning and to inquire if pt has any discharge planning needs or concerns. Pt has already been discharged. Ghulam HOFFMANN RN CM
--- NOTE | 2023-02-14 10:19 | PHA.DC.MR ---
Pharmacy Service has performed discharge medication reconciliation for this patient. The patient's discharge medication list was reviewed for discrepancies and discrepancies were resolved. Medication education papers prepared, patient discharged when I attempted to credit counselor. Home Medications loratadine 10 mg tablet (Claritin) 10 mg PO DAILY PRN PRN allergies 02/12/23 amoxicillin 875 mg-potassium clavulanate 125 mg tablet 1 tab PO BID 5 days #11 tabs 02/14/23 doxycycline hyclate 100 mg tablet 100 mg PO BID 5 days #11 tabs 02/14/23
== END 2023-02-14 09:40 | disposition home or self-care (01) ==
LOC: ED 13:36 → MS3 14:05
PROVIDERS: Admitting Provider Internal Medicine; Emergency Provider Emergency Medicine; PCP Internal Medicine; Visit Provider Internal Medicine
DX: L03.115 Cellulitis of right lower limb (principal); E66.01 Morbid (severe) obesity due to excess calories; Z68.41 Body mass index [BMI] 40.0-44.9, adult; L50.0 Allergic urticaria; R53.81 Other malaise; L02.415 Cutaneous abscess of right lower limb; G47.33 Obstructive sleep apnea (adult) (pediatric); T36.8X5A Adverse effect of other systemic antibiotics, initial encounter
CPT/HCPCS: 10060; 36415; 76882; 80048; 83605; 85025; 87040; 87070; 87075; 87205; 96365; 96366; 96367; 96375; 99221; 99284; J2020; J7040; J7050; A4216; G0378; J0295

== ENCOUNTER → 2024-02-11 | Outpatient (CLI) | payer BC, SELFPAY ==
[2024-02-11 12:49] LABS: Absolute Lymphocyte Count 2.04 X10^3/uL (0.83-4.51); Absolute Neutrophil Count 2.8 X10^3/uL (2.0-7.7); Basophil# 0.06 X10^3/uL; Basophil% 1.1 % (0-1); Eosinophil# 0.12 X10^3/uL; Eosinophils% 2.2 % (0-5); Hematocrit 44.5 % (40-54); Hemoglobin 14.6 g/dL (13.0-16.5); Lymphocyte # 2.04 X10^3/ul (0.83-4.51); Lymphocyte % 36.8 % (19-41); Mean Corp Hgb Conc 32.8 g/dL (32-36); Mean Corpuscular Hgb 28.3 pg (27.0-32.0); Mean Corpuscular Volume 86.2 fL (80-94); Mean Platelet Vol. 9.1 fl (6.2-12.0); Monocyte# 0.48 X10^3/uL; Monocyte% 8.7 % (0-10); NRBC Flagged by Analyzer 0 % (0-5); Neutrophil # 2.83 X10^3/uL (2.7-7.7); Platelet Count 308 K/mm3 (150-450); RBC Distribution Width CV 13.3 % (11.6-14.6); RBC Distribution Width SD 42.4 fl (35.1-43.9); Red Blood Count 5.16 M/mm3 (4.6-6.2); White Blood Count 5.5 K/mm3 (4.4-11.0)
[2024-02-11 13:25] LABS: Vitamin B12 365 pg/mL (211-911); Vitamin D,25 Hydroxy 27.1 ng/mL
[2024-02-11 13:29] LABS: AST(SGOT) 17 U/L (15-37); Alanine Aminotransfer ALT/SGPT 43 U/L (16-61); Albumin, Serum 3.7 g/dL (3.2-5.0); Alkaline Phosphatase 86 U/L (45-117); Anion Gap 5 (5-15); BUN 11 mg/dL (7-18); BUN/Creat Ratio 10.2 RATIO (10-20); Calcium,Total 9.4 mg/dL (8.5-10.1); Chloride 108 mmol/L (98-107); Cholesterol 148 mg/dL (200); Creatinine, Serum 1.08 mg/dL (0.70-1.30); EST Glomerular Filtration Rate 82 mL/min (>60); Est Glom Filt Rate - Afr Amer 99 mL/min (>60); Free T3 2.8 pg/mL (2.18-3.98); Globulin 3.6 g/dL (2.2-4.2); Glucose 85 mg/dL (74-106); High Density Lipoprotein 38 mg/dL; Magnesium 2.2 mg/dL (1.6-2.6); Potassium 4.2 mmol/L (3.5-5.1); Protein, Total 7.3 g/dL (6.4-8.2); Sodium Level 140 mmol/L (136-145); T4 Free Direct 0.96 ng/dL (0.76-1.46); Thyroid Stim Hormone (TSH) 0.98 uIU/mL (0.358-3.74); Triglycerides 157 mg/dL; Very Low Density Lipoprotein 31 mg/dL (5-40)
== END | disposition home or self-care (01) ==
LOC: BIMLAB 10:50
PROVIDERS: PCP Internal Medicine; Visit Provider Internal Medicine
DX: Z00.00 Encounter for general adult medical examination without abnormal findings (principal); R55 Syncope and collapse; G47.00 Insomnia, unspecified; Z13.220 Encounter for screening for lipoid disorders; E53.8 Deficiency of other specified B group vitamins; E55.9 Vitamin D deficiency, unspecified; G47.30 Sleep apnea, unspecified
CPT/HCPCS: 36415; 80053; 80061; 82306; 82607; 83735; 84439; 84443; 84481; 85025

== ENCOUNTER → 2024-03-30 | Outpatient (CLI) | payer BC, SELFPAY ==
--- NOTE | 2024-03-30 12:55 | ECHOD_ITS ---
Reason For Study: SYNCOPE Procedure This was a 2D Doppler, Color Flow transthoracic echocardiogram. Exam performed in department. Left Ventricle Normal LV size. Left ventricular systolic function is normal. The estimated ejection fraction is 60 %. No regional wall motion abnormalities noted. Right Ventricle Normal RV size. Normal systolic function. Atria Normal left atrium. Normal right atrium. Mitral Valve Normal mitral valve. Tricuspid Valve Normal tricuspid valve. Aortic Valve Trisinus/trileaflet aortic valve. Pulmonic Valve Normal pulmonic valve. Great Vessels Normal aortic root. The pulmonary artery is normal size. Normal inferior vena cava. Pericardium/Pleural No pericardial effusion. MMode/2D Measurements & Calculations LVIDd: 4.9 cm IVSd: 0.97 cm LVOT diam: 2.1 cm LVIDs: 3.5 cm LVPWd: 1.1 cm LVOT area: 3.4 cm2 RVDd: 3.7 cm FS: 28.8 % Ao root diam: 3.0 cm LAV(MOD-bp): 56.9 ml LVAd ap4: 35.5 cm2 LA dimension: 3.5 cm LAV(MOD-bp) Indexed: 22.2 ml/m2 LVLd ap4: 9.8 cm LAV(MOD-sp2): 65.9 ml EDV(MOD-sp4): 104.1 ml LAV(MOD-sp4): 50.3 ml EDV(sp4-el): 109.2 ml LVAs ap4: 19.8 cm2 LVLs ap4: 8.0 cm ESV(MOD-sp4): 42.2 ml ESV(sp4-el): 41.3 ml EF(MOD-sp4): 59.5 % EF(sp4-el): 62.2 % SV(MOD-sp4): 62.0 ml SV(sp4-el): 67.9 ml LA A4 area: 18.0 cm2 RA A4 area: 17.7 cm2 TAPSE: 2.3 cm Time Measurements MV dec time: 0.21 sec Doppler Measurements & Calculations MV E max naveen: 103.0 cm/sec Lat Peak E' Naveen: 19.8 cm/sec Med Peak E' Naveen: 11.6 cm/sec MV A max naveen: 43.7 cm/sec E/E' lat: 5.2 E/E' med: 8.9 MV E/A: 2.4 MV V2 max: 118.7 cm/sec MV P1/2t max naveen: 113.4 cm/sec Ao V2 max: 110.9 cm/sec MV max P.6 mmHg MV P1/2t: 68.9 msec Ao max P.9 mmHg MV V2 mean: 45.6 cm/sec Ao V2 mean: 77.0 cm/sec MV mean P.1 mmHg MV dec slope: 481.7 cm/sec2 Ao mean P.6 mmHg MV V2 VTI: 32.1 cm MVA(P1/2t): 3.2 cm2 Ao V2 VTI: 25.8 cm AV (velocity ratio): 0.85 MVA(VTI): 2.3 cm2 PITO(I,D): 2.9 cm2 PITO(V,D): 2.8 cm2 LV V1 max: 91.8 cm/sec SV(LVOT): 74.0 ml PA V2 max: 83.1 cm/sec LV V1 max P.4 mmHg PA max PG (full): 1.3 mmHg LV V1 mean P.9 mmHg LV V1 mean: 65.7 cm/sec LV V1 VTI: 22.0 cm ECHO/Echo Complete Interpretation Summary Normal LV size. Left ventricular systolic function is normal. The estimated ejection fraction is 60 %. Structurally normal valves. Ordering Physician: Mariann Tovar Referring Physician: Mariann Tovar Performed By: Lashell Floyd, RENA, RVT
== END | disposition home or self-care (01) ==
PROVIDERS: PCP Internal Medicine; Referring Provider Internal Medicine; Visit Provider Internal Medicine
DX: R55 Syncope and collapse (principal)
CPT/HCPCS: 93306

== ENCOUNTER → 2024-04-05 | Outpatient (CLI) | payer BC, SELFPAY ==
--- NOTE | 2024-04-05 07:58 | EKG12_ITS ---
Test Reason : LIGHTHEADED Blood Pressure : / mmHG Vent. Rate : 054 BPM Atrial Rate : 054 BPM P-R Int : 184 ms QRS Dur : 082 ms QT Int : 412 ms P-R-T Axes : 021 000 014 degrees QTc Int : 390 ms Sinus bradycardia Otherwise normal ECG Confirmed by RAYMUNDO MORALES, GURDEEP ([id number]), science editor TRIXIE COVARRUBIAS ([id number]) on 04/05/2024 10:04:24 AM Referred By: ANNABELLE Confirmed By:GURDEEP FONSECA MD
== END | disposition home or self-care (01) ==
PROVIDERS: PCP Internal Medicine; Visit Provider Internal Medicine
DX: R55 Syncope and collapse (principal)
CPT/HCPCS: 93005